=== PATIENT | male | born 1960 | race Caucasian/White ===

== ENCOUNTER 2017-05-20 12:08 | Day surgery (SDC) | payer OTHER ==
[2017-05-14 08:22] VITALS: BMI 33.7
[2017-05-20] MEDS ORDERED: BUPIVACAINE HCL/PF 2.5 MG/ML - 30 ML VIAL IJ ONE (14:52)
[2017-05-20] MEDS ORDERED: fentaNYL CITRATE 250 MCG/5 ML VIAL ONE (15:23)
[2017-05-20] MEDS ORDERED: MIDAZOLAM HCL 2 MG/2 ML SINGLE DOSE VIAL ONE (15:23)
[2017-05-20] MEDS ORDERED: PROPOFOL 20 ML ONE (15:23)
[2017-05-20] MEDS ORDERED: CLINDAMYCIN PHOSPHATE 600 MG/4 ML VIAL ONE (15:36)
[2017-05-20] MEDS ORDERED: DEXAMETHASONE SOD PHOSPHATE 4 MG/1 ML VIAL ONE (15:40)
[2017-05-20] MEDS ORDERED: ONDANSETRON 4 MG/2 ML VIAL ONE (15:40)
[2017-05-20] MEDS ORDERED: BUPIVACAINE HCL/PF 0.25% (2.5MG/ML) 10 ML VIAL IJ ONE (15:44)
[2017-05-20] MEDS ORDERED: ONDANSETRON 4 MG/2 ML VIAL IVPUSH PRN (15:59)
[2017-05-20] MEDS ORDERED: oxyCODONE HCL 5 MG TABLET PO PRN (15:59)
[2017-05-20] MEDS ORDERED: LACTATED RINGERS SOLUTION 1,000 ML IV SCH (16:00)
--- NOTE | 2017-05-20 16:26 | OP ---
Operative Note - Note: Operative Date: 05/20/17 Pre-Operative Diagnosis: right knee medial meniscal tear Operation: right knee arthroscopy with partial medial meniscectomy Post-Operative Diagnosis: Same as Pre-op Surgeon: Leandro Frost Anesthesia: General Operative Report Dictated: Yes
[2017-05-20 17:11] VITALS: TEMP 98
--- NOTE | 2017-05-20 17:26 | OP ---
DATE OF OPERATION: 05/20/2017 PREOPERATIVE DIAGNOSIS: Right knee medial meniscal tear. POSTOPERATIVE DIAGNOSIS: Right knee medial meniscal tear. PROCEDURE: Right knee arthroscopy with partial medial meniscectomy. SURGEON: Leandro Kilpatrick MD ANESTHESIA: General. POSTOPERATIVE CONDITION: Stable. COMPLICATIONS: None. INDICATIONS: This is a pleasant, 57-year-old gentleman who has been suffering from right knee pain. MRI demonstrated medial meniscal tear. Treatment options including nonoperative versus operative management were discussed. Operative risks were reviewed in detail including bleeding, infection, neurovascular injury, need for further surgery, postoperative pain and stiffness, and progression of osteoarthritis. We discussed medical risks such as heart attack, stroke, DVT, PE, and . I addressed the use of perioperative antibiotic and DVT prophylaxis. I addressed all the patient's questions. He voiced understanding and elected to proceed. DESCRIPTION OF PROCEDURE: Patient was brought to the operating room where general anesthesia was administered. The right lower extremity was prepped and draped in the usual sterile fashion. A preoperative dose of antibiotics was given, and the usual timeout procedure was performed. The portal sites were marked out on the knee and then injected subcutaneously with 0.25% Marcaine. An 11 blade was used to establish the lateral portal. The arthroscope was now passed into the patellofemoral joint. Examination of this joint demonstrated some superficial streak wear. Passing the arthroscope down into the notch demonstrated intact ACL and PCL. The arthroscope was now passed into the medial compartment. A medial portal was established under spinal needle localization. The meniscus was now examined. There was a significant tear at the junction of the posterior horn and body, mostly radial in nature but also with some more deep horizontal component. Utilizing a combination of meniscal biters and alexis, this was debrided down to a stable base. It should be noted that there was some superficial articular cartilage wear on both the femoral and tibial sides. Passing the arthroscope into the lateral compartment demonstrated no meniscal lesions. There was very superficial cartilage fraying noted, without any fissuring or more significant lesions. At this point, the excess fluid was withdrawn from the knee. The portals were sutured using 3-0 nylon. Compressive dressings were placed. The patient was extubated, transferred to recovery room in stable condition. LEANDRO KILPATRICK M.D. NEHA/[id number]
[2017-05-20 17:50] VITALS: BP 126/85; PULSE 60
== END 2017-05-20 17:50 | disposition home or self-care (01) ==
LOC: FASU 12:08
PROVIDERS: ATTEND Orthopaedic Surgery Sports Medicine
PROC: 0SBC4ZZ Excision of Right Knee Joint, Percutaneous Endoscopic Approach (ICD-10-PCS; principal; 2017-05-20 15:45)
DX: S83.241A Other tear of medial meniscus, current injury, right knee, initial encounter (principal); X58.XXXA Exposure to other specified factors, initial encounter; Y93.89 Activity, other specified; Y92.89 Other specified places as the place of occurrence of the external cause